=== PATIENT | female | born 1970 | race Caucasian/White ===

== ENCOUNTER 2021-02-10 14:13 | Emergency (ER) | payer MEDICARE ==
[2021-02-10 14:51] VITALS: BP 158/96
[2021-02-10] MEDS ORDERED: PERCOCET TABLET 5/325MG PO ONE (15:09)
--- NOTE | 2021-02-10 15:11 | ERPHSYRPT ---
- History of Present Illness Time Seen by Provider: 02/10/21 14:17 Source: patient Exam Limitations: no limitations Patient Subjective Stated Complaint: Patient is c/o left knee pain. She states she had surgery on her ACL approx 20 years and and "buttons" in that knee. She has been in town helping family. She thinks she overworked her knee and that one of the "buttons" in her knee has become displaced. Rates pain as a #4 when not walking or standing but states pain increases to an #8 when up moving around. Triage Nursing Assessment: Patient ambulated back to ED with a slow gait. She is alert and oriented and answering questions appropriately. Knee brace on upon arrival to ED. Patient states she put this on to try and reduce her pain when up. No swelling noted. Upon palpating her left knee, movement of hardware noted to upper inner knee. Patient indicates that this is one of her "buttons" moving around and that it isn't supposed to do this. Physician History: 51 years old female with history of left ACL repair 20 years ago presented to the ER with increasing pain left knee for the last 1 to 2 weeks after she was involved in exertional work lifting/moving heavy objects involving multiple stairs and thinks she over used her knee. She noticed some swelling especially on the medial superior aspect of knee with some snapping sensation. She is able to ambulate/walk on it but hurts. Partial relief with taking [id number] pain medications. No direct trauma or fall reported. Method of Injury: other Occurred: last week Quality: constant Severity of Pain-Max: moderate Severity of Pain-Current: moderate Lower Extremities Pain: knee: left Modifying Factors: Improves With: immobilization, rest. Worsens With: movement Associated Symptoms: popping sensation Allergies/Adverse Reactions: morphine Allergy (Verified 02/10/21 14:21) Travel Risk - International Travel Have you traveled outside of the country in past 3 weeks: No - Coronavirus Screening Are you exhibiting any of the following symptoms?: No Close contact with a COVID-19 positive Pt in past 14-21 Days: No - Vaccine Status Have you recieved a Covid-19 vaccination: No - Review of Systems Constitutional: No Symptoms Ears, Nose, & Throat: No Symptoms Respiratory: No Symptoms Cardiac: No Symptoms Genitourinary Symptoms: No Symptoms Musculoskeletal: Arthralgias, Joint Pain, Joint Swelling Skin: No Symptoms Neurological: No Symptoms Endocrine: No Symptoms - Past Medical History Pertinent Past Medical History: Yes Neurological History: Migraines ENT History: No Pertinent History Cardiac History: No Pertinent History Respiratory History: No Pertinent History Endocrine Medical History: No Pertinent History Musculoskeletal History: Fractures GI Medical History: No Pertinent History History: No Pertinent History Psycho-Social History: Anxiety, Bipolar, Depression Female Reproductive Disorders: Cervical Cancer, Endometriosis - Past Surgical History Past Surgical History: Yes Neuro Surgical History: No Pertinent History Cardiac: No Pertinent History Respiratory: No Pertinent History Gastrointestinal: No Pertinent History Genitourinary: No Pertinent History Musculoskeletal: Orthopedic Surgery Female Surgical History: Hysterectomy - Social History Smoking Status: Never smoker Exposure to second hand smoke: No Drug Use: none - Female History Hx Now: No - Nursing Vital Signs Nursing Vital Signs: Initial Vital Signs Temperature 98 F 02/10/21 14:28 Pulse Rate 92 H 02/10/21 14:28 Respiratory Rate 20 02/10/21 14:28 Blood Pressure 158/96 02/10/21 14:28 O2 Sat by Pulse Oximetry 95 02/10/21 14:28 Pain Scale Pain Intensity 4 - Physical Exam General Appearance: no apparent distress, alert Eyes, Ears, Nose, Throat Exam: normal ENT inspection Neck Exam: normal inspection, full range of motion Cardiovascular/Respiratory Exam: normal breath sounds, regular rate/rhythm Legs Exam: bilateral leg: non-tender, normal inspection, normal range of motion Knees Exam: right knee: non-tender, normal inspection, normal range of motion, no evidence of injury, left knee: joint effusion, pain, soft tissue tenderness, swelling (Medial superior) Ankle Exam: bilateral ankle: non-tender, normal inspection, normal range of motion, no evidence of injury Foot Exam: bilateral foot: normal inspection Neuro/Tendon Exam: normal sensation, normal motor functions Mental Status Exam: alert, oriented x 3, cooperative Skin Exam: normal color SpO2 Interpretation: normal SpO2: 95 O2 Delivery: Room Air Ordered Tests: Active Orders 24 hr Category Date Time Status KNEE (3 VIEWS) Stat Exams 02/10/21 14:23 Ordered - Progress Progress: pain not gone completely Progress Note: 02/10/21 she is given Percocet for symptomatic relief. X-rays negative for any fracture dislocation. More of a ligamentous injury. She has knee brace which she has been using but it does not stabilizes very well. She is placed in knee immobilizer, given crutches to avoid further damage and outpatient follow-up recommended. Counseled pt/family regarding: diagnosis, need for follow-up, rad results - Departure Departure Disposition: Home Clinical Impression: Sprain of left knee Condition: Stable Critical Care Time: No Referrals: AYDE WASHINGTON MD [NON-STAFF PHY W/O PRIVILEGES] - Follow up/PCP as directed (Friday for reevaluation) Instructions: Knee Sprain (DC) Additional Instructions: Apply intermittent ice. Take pain medications as needed. Nonweightbearing. Outpatient follow-up with Ortho clinic for reevaluation. Return to ER for worsening. Prescriptions: Hydrocodone/Acetaminophen [Hydrocodone-Acetamin 5-325 mg] 1 tab PO Q6HPRN PRN 3 Days #12 tablet MDD 4 PRN Reason: Pain
[2021-02-10] MEDS ORDERED: NORCO 5/325 MG PO ONE (15:16)
[2021-02-10] MEDS ORDERED: NORCO 5/325 MG ONE (15:17)
[2021-02-10 15:31] VITALS: PULSE 80; O2SAT 96
--- NOTE | 2021-02-10 19:34 | XRAY ---
Indication: Pain. Comparison: None 3 view left knee demonstrates previous ACL reconstruction surgery with intact orthopedic hardware and tiny spurring medial condyle/patella. No other bony, articular, or soft tissue abnormalities.
== END 2021-02-10 15:31 | disposition home or self-care (01) ==
LOC: ED 14:13
DX: S83.92XA Sprain of unspecified site of left knee, initial encounter (principal); X50.0XXA Overexertion from strenuous movement or load, initial encounter; X50.3XXA Overexertion from repetitive movements, initial encounter; Z79.891 Long term (current) use of opiate analgesic
CPT/HCPCS: 73562; 99284; L1830; A9270-GY